=== PATIENT | female | born 1990 | race Caucasian/White ===

== ENCOUNTER 2018-12-10 16:24 | Emergency (ER) | payer OTHER ==
--- OUTSIDE RECORDS SUMMARY | 2018-12-10 16:27 | XMS REPORT | Clinical Summary ---
:1990 Author Organization [facility] Address [address] [place] [id number] Care Team Providers Name Role Phone Jono López Primary Care Provider Allergies Active Allergy Reactions Severity Noted Date Comments Nyquil Other (See Comments) High 03/19/2014 hallucination Medications Medication Sig Dispensed Refills Start Date End Date Status lithium 150 MG Take 300 mg by 0 Active capsuleIndications: mouth 3 (three) Bipolar Disorder times daily with meals. QUEtiapine (SEROQUEL) Take 400 mg by 0 Active 400 MG tablet mouth nightly. propranolol (INDERAL) Take 20 mg by 0 Active 20 MG tablet mouth 3 (three) times daily. chlorpheniramine-hydroc Take 5 mLs (8 mg 75 mL 0 03/19/2014 Active odone (TUSSIONEX ER) total) by mouth 2 8-10 mg/5 mL Su12 ER (two) times daily 12hr oral suspension as needed. Active Problems Not on file Social History Tobacco Use Types Packs/Day Years Used Date Never Smoker Smokeless Tobacco: Never Used Alcohol Use Drinks/Week oz/Week Comments No Sex Assigned at Date Recorded Not on file Job Start Date Occupation Industry Not on file Not on file Not on file Travel History Travel Start Travel End No recent travel history available. Last Filed Vital Signs Not on file Plan of Treatment Not on file Results Not on fileafter 12/09/2017 Insurance Payer Benefit Plan / Group Subscriber ID Type Phone Address [employer] - [employer] CARE CIGNA HMO/POS/OPEN ACCESS xxxxxxxxxxx HMO/POS [facility] Bibiana Baker (Home) [place] [phone]
[2018-12-10] MEDS ORDERED: ONDANSETRON 4 MG/2 ML VIAL ONE (17:16)
[2018-12-10] MEDS ORDERED: MORPHINE 4 MG/ML SYR ONE (17:16)
[2018-12-10 17:22] LABS: Absolute Lymphocytes (CBC) 2.7 K/uL (0.7-4.9); Absolute Monocytes 0.5 K/uL (0.1-1.3); Basophils % 0.7 % (0-1.3); Eosinophils % 1.2 % (0-4.4); Hematocrit 41.3 % (36.0-45.0); MPV 8.5 fL (7.6-11.3); Monocytes % 7.2 % (3.3-12.3); RBC Red Blood Cell Count 4.67 M/uL (3.86-4.86)
--- NOTE | 2018-12-10 17:34 | RAD REPORT ---
EXAM DESCRIPTION: RAD - Chest Single View - 12/10/2018 5:21 pm CLINICAL HISTORY: CHEST PAIN Chest pain. COMPARISON: CHEST PA AND LAT 2 VIEW dated 04/05/2007 FINDINGS: Portable technique limits examination quality. The lungs are grossly clear. The heart is normal in size. No displaced fractures. IMPRESSION: No acute intrathoracic process suspected.
[2018-12-10 17:42] LABS: ALT/SGPT 29 U/L (12-78); AST/SGOT 15 U/L (15-37); Alkaline Phosphatase 72 U/L (45-117); BUN Blood Urea Nitrogen 9 mg/dL (7-18); Bicarbonate 28 mmol/L (21-32); Bilirubin Direct < 0.1 mg/dL (0-0.2); Bilirubin Total 0.3 mg/dL (0.2-1.0); Glucose Level 86 mg/dL (74-106); Lipase 69 U/L (73-393); Magnesium 1.8 mg/dL (1.8-2.4); NT PRO-BNP 33 pg/mL (<125); Potassium 4.3 mmol/L (3.5-5.1); Protein, Total 7.8 g/dL (6.4-8.2); Sodium Level 140 mmol/L (136-145); Troponin (Emerg Dept Use Only) < 0.02 ng/mL (0.0-0.045)
[2018-12-10 19:04] LABS: Urine Blood NEGATIVE (NEG); Urine Glucose NEGATIVE (NEG); Urine Protein NEGATIVE (NEG); Urine Specific Gravity 1.015 (1.005-1.030); Urine pH 5.5 (5.0-7.0)
[2018-12-10] MEDS ORDERED: DIAZEPAM 10 MG/2 ML INJ SYRINGE ONE (19:29)
--- NOTE | 2018-12-10 20:02 | RAD REPORT ---
EXAM DESCRIPTION: CT - Chest For Pe Angio - 12/10/2018 7:51 pm CLINICAL HISTORY: Chest pain. chest pain, shortness of breath COMPARISON: No comparisons TECHNIQUE: CT angiogram of the pulmonary arteries was performed with MIP. All CT scans are performed using dose optimization technique as appropriate and may include automated exposure control or mA/KV adjustment according to patient size. FINDINGS: No evidence of pulmonary thromboembolism. No acute aortic finding demonstrated. The lungs are clear. No significant pericardial or pleural fluid. No concerning bony finding. IMPRESSION: No evidence of pulmonary thromboembolism. No acute lung findings.
--- NOTE | 2018-12-10 20:03 | RAD REPORT ---
EXAM DESCRIPTION: CTAbdomen Pelvis W Contrast - 12/10/2018 7:51 pm CLINICAL HISTORY: Abdominal pain. right lower abdominal pain, IV ONLY COMPARISON: Chest For Pe Angio dated 12/10/2018 TECHNIQUE: Biphasic CT imaging of the abdomen and pelvis was performed with 100 ml non-ionic IV cont rast. All CT scans are performed using dose optimization technique as appropriate and may include automated exposure control or mA/KV adjustment according to patient size. FINDINGS: The lung bases are clear. The liver, spleen, pancreas, adrenal glands and kidneys are within normal limits. No bowel obstruction, free air, free fluid or abscess. The appendix is normal. No evidence of signi ficant lymphadenopathy. No suspicious bony findings. IMPRESSION: No acute intra-abdominal or pelvic finding.
[2018-12-10] MEDS ORDERED: KETOROLAC 30 MG/ML INJ ONE (20:08)
--- NOTE | 2018-12-10 20:26 | ER ---
Nurse's Notes [facility] Name: Bibiana Verdugo Age: 28 yrs Sex: Female : 1990 Arrival Date: 12/10/2018 Time: 16:27 Bed 24 Private MD: Diagnosis: Chest pain, unspecified;Abdominal and pelvic pain Presentation: 12/10 16:27 Presenting complaint: Patient states: i am having a lot of chest pain, it started a tw2 week and a half ago, but it has gotten worse, she went to the ER in a week ago they did ekg and it was fine, i am nauseous. Transition of care: patient was not received from another setting of care. Onset of symptoms was December 10, 2018. Risk Assessment: Do you want to hurt yourself or someone else? Patient reports no desire to harm self or others. Initial Sepsis Screen: Does the patient meet any 2 criteria? No. Patient's initial sepsis screen is negative. Does the patient have a suspected source of infection? No. Patient's initial sepsis screen is negative. Care prior to arrival: None. 16:27 Method Of Arrival: Ambulatory tw2 16:27 Acuity: JANNA 3 tw2 Triage Assessment: 16:32 General: Appears obese, Behavior is anxious. Pain: Complains of pain in chest. tw2 Cardiovascular: Reports chest pain. 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 - Social history:: Smoking status: . - Ebola Screening: : Patient denies travel to an Ebola-affected area in the 21 days before illness onset. Screenin:29 Abuse screen: Denies threats or abuse. Denies injuries from another. Nutritional rv screening: No deficits noted. Tuberculosis screening: No symptoms or risk factors identified. Fall Risk None identified. Assessment: 17:28 General: Appears in no apparent distress. comfortable, Behavior is calm, cooperative. rv Pain: Complains of pain in chest Pain does not radiate. Pain began suddenly. Neuro: Level of Consciousness is awake, alert, obeys commands, Oriented to person, place, time, situation. Cardiovascular: Capillary refill < 3 seconds Rhythm is regular. Respiratory: Airway is patent. GI: No signs and/or symptoms were reported involving the gastrointestinal system. : No signs and/or symptoms were reported regarding the genitourinary system. EENT: No signs and/or symptoms were reported regarding the EENT system. Derm: Skin is intact. Vital Signs: 16:29 BP 129 / 91; Pulse 79; Resp 18; Temp 98.0(O); Pulse Ox 98% on R/A; Weight 113.4 kg (R); tw2 Height 5 ft. 7 in. (170.18 cm); Pain 10/10; 16:45 BP 100 / 72 LA; Pulse 80; Resp 19 S; Pulse Ox 100% on R/A; rv 16:29 Body Mass Index 39.16 (113.40 kg, 170.18 cm) tw2 ED Course: 16:27 Patient arrived in ED. mr 16:29 Triage completed. tw2 16:32 Arm band placed on. tw2 16:46 [facility] 16:46 Felix Ross MD is Attending Physician. m 17:05 EKG done, by loom technician. reviewed by Jamey [place]. sm3 17:11 Inserted saline lock: in right antecubital area, using aseptic technique. tm3 17:12 Initial lab(s) drawn, by ne, sent to lab. tm3 17:20 X-ray completed. Portable x-ray completed in exam room. Patient tolerated procedure ml well. 17:21 XRAY Chest (1 view) In Process Unspecified. EDMS 17:28 Patient has correct armband on for positive identification. Placed in gown. Bed in low rv position. Call light in reach. Side rails up X2. Adult w/ patient. monitor car operator on. Pulse ox on. NIBP on. 17:29 Patient maintains SpO2 saturation greater than 95% on room air. rv 19:[address] via wheelchair. vm2 19:47 CT completed. Patient tolerated procedure well. Patient moved back from CT. vm2 19:51 CT Chest For PE Angio In Process Unspecified. EDMS 19:51 CT Abd/Pelvis - W/Contrast In Process Unspecified. EDMS 20:31 US Abdomen Limited In Process Unspecified. EDMS 20:38 No provider procedures requiring assistance completed. IV discontinued, bleeding rv controlled, No redness/swelling at site. Pressure dressing applied. Administered Medications: 17:25 Not Given (Patient Refused): Zofran 4 mg IVP once; over 2 minutes rv 17:26 Drug: morphine 4 mg Route: IVP; Site: right antecubital; rv 19:44 Follow up: Response: Pain is decreased rv 19:32 Drug: Valium 2 mg Route: IVP; Site: right antecubital; rv 20:39 Follow up: Response: Marked relief of symptoms rv 20:00 Drug: Ketorolac 30 mg Route: IVP; Site: right antecubital; rv 20:39 Follow up: Response: Pain is decreased rv Outcome: 20:26 Discharge ordered by MD. jmm 20:38 Discharged to home ambulatory. rv 20:38 Condition: good 20:38 Discharge instructions given to patient, Instructed on discharge instructions, follow up and referral plans. medication usage, Demonstrated understanding of instructions, follow-up care, medications, Prescriptions given X 2. 20:40 Patient left the ED. rv Signatures: Dispatcher [employer] EDMS Stuart Jacobsen 3 Jamey Bailey PA PA jmm Rivera, Mary mr Blake, Laisha Ramey, RN RN tw2 Rebeca Espinoza 2 Lori Mixon 3 Ambrocio Ford, RN RN rv
--- NOTE | 2018-12-10 20:26 | EDPHYS ---
Physician Documentation [facility] Name: Bibiana Verdugo Age: 28 yrs Sex: Female : 1990 Arrival Date: 12/10/2018 Time: 16:27 Bed 24 Private MD: ED Physician Felix Ross HPI: 12/10 16:58 This 28 yrs old Female presents to ER via Ambulatory with complaints of Chest jmm Pain. 16:58 The patient or guardian reports chest pain that is located primarily in the substernal jmm area. The pain does not radiate. Associated signs and symptoms: Pertinent positives: shortness of breath. The chest pain is described as sharp, squeezing. This is a 28 year old female with a history of htn, bipolar, anxiety, migraines that presents to the ED with complaints of 10 days of left sided chest pain beginning approx 10 days ago. Patient was initially evaluated at another ED with negative studies. Patient states the pain has intensified over the past 2 days. . 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 - Social history:: Smoking status: . - Ebola Screening: : Patient denies travel to an Ebola-affected area in the 21 days before illness onset. ROS: 16:58 Constitutional: Negative for fever, chills, and weight loss. jmm 16:58 Cardiovascular: Positive for chest pain. 16:58 Abdomen/GI: Positive for abdominal pain. 16:58 All other systems are negative. Exam: 16:58 Head/Face: atraumatic. Eyes: EOMI, no conjunctival erythema appreciated ENT: Moist jmm Mucus Membranes Neck: Trachea midline, Supple Chest/axilla: Normal chest wall appearance and motion. Cardiovascular: Regular rate and rhythm. No edema appreciated Respiratory: Normal respirations, no respiratory distress appreciated 16:58 Constitutional: The patient appears alert, awake, anxious, uncomfortable. 16:58 Abdomen/GI: Inspection: obese Bowel sounds: normal, Palpation: soft, mild abdominal tenderness, in the right upper quadrant and right lower quadrant. 16:58 Back: ROM is normal. 16:58 Musculoskeletal/extremity: ROM: intact in all extremities. 16:58 Skin: Appearance: Color: normal in color. 16:58 Neuro: Orientation: is normal, Mentation: is normal, Memory: is normal. 16:58 Psych: Behavior/mood is pleasant, cooperative, anxious. Vital Signs: 16:29 BP 129 / 91; Pulse 79; Resp 18; Temp 98.0(O); Pulse Ox 98% on R/A; Weight 113.4 kg (R); tw2 Height 5 ft. 7 in. (170.18 cm); Pain 10/10; 16:45 BP 100 / 72 LA; Pulse 80; Resp 19 S; Pulse Ox 100% on R/A; rv 16:29 Body Mass Index 39.16 (113.40 kg, 170.18 cm) tw2 MDM: 16:56 Patient medically screened. [facility] 20:22 Data reviewed: vital signs, nurses notes. Counseling: I had a detailed discussion with [facility] the patient and/or guardian regarding: the historical points, exam findings, and any diagnostic results supporting the discharge/admit diagnosis, radiology results, the need for outpatient follow up, to return to the emergency department if symptoms worsen or persist or if there are any questions or concerns that arise at home. 20:37 ED course: Repeat enzymes negative, CTA negative. Ct abd/pelvis normal. Patient will [facility] follow up with cardiology tomorrow for reevaluaiton. I do not currently suspect ACS. Patient was otherwise given strict return precautions. Patient understood agrees with the plan of care . 12/10 16:57 Order name: Basic Metabolic Panel; Complete Time: 17:47 [facility] 12/10 16:57 Order name: CBC with Diff; Complete Time: 17:47 [facility] 12/10 16:57 Order name: LFT's; Complete Time: 17:47 [facility] 12/10 16:57 Order name: Magnesium; Complete Time: 17:47 [facility] 12/10 16:57 Order name: NT PRO-BNP; Complete Time: 17:47 [facility] 12/10 16:57 Order name: PT-INR; Complete Time: 17:47 [facility] 12/10 16:57 Order name: Troponin (emerg Dept Use Only); Complete Time: 17:47 [facility] 12/10 16:57 Order name: XRAY Chest (1 view); Complete Time: 17:47 [facility] 12/10 16:57 Order name: D-Dimer; Complete Time: 17:47 [facility] 12/10 16:57 Order name: Lipase; Complete Time: 17:47 [facility] 12/10 17:24 Order name: Urine Dipstick--Ancillary (enter results); Complete Time: 19:05 12/10 17:24 Order name: Urine --Ancillary (enter results); Complete Time: 19:05 bd 12/10 19:17 Order name: Troponin (emerg Dept Use Only); Complete Time: 19:58 [facility] 12/10 19:23 Order name: US Abdomen Limited; Complete Time: 20:37 [facility] 12/10 16:57 Order name: EKG; Complete Time: 16:57 [facility] 12/10 16:57 Order name: Cardiac monitoring; Complete Time: 17:26 [facility] 12/10 16:57 Order name: EKG - Nurse/Tech; Complete Time: 17:26 [facility] 12/10 16:57 Order name: IV Saline Lock; Complete Time: 17:26 [facility] 12/10 16:57 Order name: Labs collected and sent; Complete Time: 17:26 [facility] 12/10 16:57 Order name: O2 Per Protocol; Complete Time: 17:26 [facility] 12/10 16:57 Order name: O2 Sat Monitoring; Complete Time: 17:26 [facility] 12/10 19:17 Order name: EKG - Nurse/Tech; Complete Time: 19:45 [facility] 12/10 19:28 Order name: CT Chest For PE Angio; Complete Time: 20:09 [facility] 12/10 19:28 Order name: CT Abd/Pelvis - W/Contrast; Complete Time: 20:09 [facility] Administered Medications: 17:25 Not Given (Patient Refused): Zofran 4 mg IVP once; over 2 minutes rv 17:26 Drug: morphine 4 mg Route: IVP; Site: right antecubital; rv 19:44 Follow up: Response: Pain is decreased rv 19:32 Drug: Valium 2 mg Route: IVP; Site: right antecubital; rv 20:39 Follow up: Response: Marked relief of symptoms rv 20:00 Drug: Ketorolac 30 mg Route: IVP; Site: right antecubital; rv 20:39 Follow up: Response: Pain is decreased rv Disposition: 12/10/18 20:26 Discharged to Home. Impression: Chest pain, unspecified, Abdominal and pelvic pain. - Condition is Stable. - Discharge Instructions: Abdominal Pain, Adult, Nonspecific Chest Pain. - Prescriptions for Tylenol- Codeine #3 300-30 mg Oral Tablet - take 1 tablet by ORAL route every 6 hours As needed; 12 tablet. Ibuprofen 800 mg Oral Tablet - take 1 tablet by ORAL route every 8 hours As needed take with food; 30 tablet. - Medication Reconciliation Form, Thank You Letter, Antibiotic Education, Prescription Opioid Use form. - Follow up: Private Physician; When: 2 - 3 days; Reason: Recheck today's complaints, Continuance of care, Re-evaluation by your physician. Signatures: Dispatcher [employer] EDMS Jamey Bailey PA PA jmm Wise, Tara RN RN tw2 Ambrocio Ford RN RN rv Corrections: (The following items were deleted from the chart) 20:40 20:26 12/10/2018 20:26 Discharged to Home. Impression: Chest pain, unspecified; rv Abdominal and pelvic pain. Condition is Stable. Forms are Medication Reconciliation Form, Thank You Letter, Antibiotic Education, Prescription Opioid Use. Follow up: Private Physician; When: 2 - 3 days; Reason: Recheck today's complaints, Continuance of care, Re-evaluation by your physician. katty
--- NOTE | 2018-12-10 20:35 | RAD REPORT ---
EXAM DESCRIPTION: US - Abdomen Exam Limited - 12/10/2018 8:30 pm CLINICAL HISTORY: abdominal pain, chest pain COMPARISON: <Comparisons> FINDINGS: The gallbladder demonstrates no gallstones. No pericholecystic fluid or gallbladder wall t hickening. The common bile duct is normal measuring 3 mm. The liver demonstrates no findings of intrahepatic biliary dilatation. IMPRESSION: Unremarkable examination.
== END 2018-12-10 20:40 | disposition home or self-care (01) ==
LOC: ER 16:24
DX: R10.2 Pelvic and perineal pain (principal); I10 Essential (primary) hypertension; F31.9 Bipolar disorder, unspecified
CPT/HCPCS: 36415; 71045; 71275; 74177; 76705; 80048; 80076; 81003; 81025; 83690; 83735; 83880; 84484; 85025; 85379; 85610; 93005; 96374; 96375; 99285; J2405; J3360; Q9967

== ENCOUNTER 2019-02-08 22:05 | Emergency (ER) | payer OTHER ==
--- OUTSIDE RECORDS SUMMARY | 2019-02-08 22:06 | XMS REPORT | Clinical Summary ---
:1990 Author Organization [facility] Address [address] [place] [id number] Care Team Providers Name Role Phone Jono [...] Not on file Results Not on fileafter 02/07/2018 Insurance Payer Benefit Plan / Group Subscriber ID Type Phone Address [employer] - [employer] CARE CIGNA HMO/POS/OPEN ACCESS xxxxxxxxxxx HMO/POS [facility] Bibiana Baker (Home) [place] [id number]
[2019-02-08] MEDS ORDERED: IBUPROFEN 200 MG TAB PO ONE (22:39)
--- NOTE | 2019-02-08 23:18 | ER ---
Nurse's Notes [facility] Name: Bibiana Verdugo Age: 28 yrs Sex: Female : 1990 Arrival Date: 02/08/2019 Time: 22:06 Bed 15 Private MD: Diagnosis: Displaced fracture of proximal phalanx of right lesser toe(s) Presentation: 02/08 22:19 Presenting complaint: Patient states: she injured her right foot approx an hour ago bb while trying to kick off her flip flop by kicking the door frame, last two toes and lateral aspect of right foot are painful. Transition of care: patient was not received from another setting of care. Onset of symptoms was February 08, 2019. Risk Assessment: Do you want to hurt yourself or someone else? Patient reports no desire to harm self or others. Initial Sepsis Screen: Does the patient meet any 2 criteria? No. Patient's initial sepsis screen is negative. Does the patient have a suspected source of infection? No. Patient's initial sepsis screen is negative. Care prior to arrival: None. 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 - Social history:: Smoking status: Patient/guardian denies using tobacco. - Ebola Screening: : No symptoms or risks identified at this time. Screenin:32 Abuse screen: Denies threats or abuse. Nutritional screening: No deficits noted. jb4 Tuberculosis screening: No symptoms or risk factors identified. Fall Risk None identified. Assessment: 22:32 General: Appears in no apparent distress. uncomfortable, Behavior is calm, cooperative, jb4 appropriate for age. Pain: Complains of pain in right foot Pain does not radiate. Pain currently is 8 out of 10 on a pain scale. Quality of pain is described as pulsating. Neuro: Level of Consciousness is awake, alert, obeys commands, Oriented to person, place, time, situation. Cardiovascular: Patient's skin is warm and dry. Respiratory: Airway is patent Respiratory effort is even, unlabored, Respiratory pattern is regular, symmetrical. GI: No signs and/or symptoms were reported involving the gastrointestinal system. : No signs and/or symptoms were reported regarding the genitourinary system. EENT: No signs and/or symptoms were reported regarding the EENT system. Derm: Skin is intact, Skin is pink, warm \T\ dry. Musculoskeletal: Circulation, motion, and sensation intact. 02/09 00:00 Reassessment: Patient appears in no apparent distress at this time. Patient and/or jb4 family updated on plan of care and expected duration. Pain level reassessed. Patient is alert, oriented x 3, equal unlabored respirations, skin warm/dry/pink. Patient denies pain at this time. Vital Signs: 02/08 22:22 BP 111 / 79; Pulse 100; Resp 16 S; Temp 98.8(O); Pulse Ox 100% on R/A; Weight 108.86 kg bb (R); Height 5 ft. 7 in. (170.18 cm) (R); Pain 8/10; 02/09 00:00 BP 100 / 64; Pulse 82; Resp 20; Pulse Ox 99% on R/A; jb4 02/08 22:22 Body Mass Index 37.59 (108.86 kg, 170.18 cm) ED Course: 02/08 22:06 Patient arrived in ED. as 22:10 Felix Ross MD is Attending Physician. 22:21 Randy Escobar, MARIO is Primary Nurse. [facility] 22:21 Triage completed. 22:22 Arm band placed on Patient placed in an exam room, on a stretcher, on pulse oximetry. Family accompanied patient. 22:32 Patient has correct armband on for positive identification. Bed in low position. Call jb4 light in reach. Side rails up X 1. Pulse ox on. NIBP on. 22:41 Foot Right 3 View XRAY In Process Unspecified. EDMS 23:16 Bubba Sanchez MD is Referral Physician. 02/09 00:00 No provider procedures requiring assistance completed. Patient did not have IV access jb4 during this emergency room visit. 00:00 Crutch training done. jb4 Administered Medications: 02/08 22:29 Drug: Ibuprofen 600 mg Route: PO; jb4 22:59 Follow up: Response: No adverse reaction; Pain is decreased jb4 23:48 Drug: [place] 10 mg-325 mg 1 tabs Route: PO; jb4 02/09 00:09 Follow up: Response: No adverse reaction; Medication administered at discharge. jb4 Outcome: 02/08 23:17 Discharge ordered by . ro 02/09 00:00 Discharged to home via wheelchair. jb4 Condition: stable Discharge instructions given to patient, family, Instructed on discharge instructions, follow up and referral plans. crutch walking, Demonstrated understanding of instructions, follow-up care, crutch walking, Prescriptions given X 1. 00:11 Patient left the ED. jb4 Signatures: Dispatcher [employer] EDLucinda Kent Brenda, RN RN bb Bryson, James, RN RN jb4 Felix Ross MD MD gs
--- NOTE | 2019-02-08 23:18 | EDPHYS ---
Physician Documentation [facility] Name: Bibiana Verdugo Age: 28 yrs Sex: Female : 1990 Arrival Date: 02/08/2019 Time: 22:06 Bed 15 Private MD: ED Physician Felix Ross HPI: 02/08 23:12 This 28 yrs old Female presents to ER via Wheelchair with complaints of Foot gs Injury. 23:12 The patient presents with an injury. The complaints affect the right foot. Context: gs resulted from the patient kicking, a door. Onset: The symptoms/episode began/occurred acutely, just prior to arrival. Modifying factors: The symptoms are alleviated by nothing, the symptoms are aggravated by weight bearing, movement. Associated signs and symptoms: Pertinent negatives: numbness. Severity of symptoms: At their worst the symptoms were severe, in the emergency department the symptoms are unchanged. The patient has not experienced similar symptoms in the past. 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 - Social history:: Smoking status: Patient/guardian denies using tobacco. - Ebola Screening: : No symptoms or risks identified at this time. ROS: 23:12 All other systems are negative. gs Exam: 23:12 Head/Face: Normocephalic, atraumatic. Neck: Trachea midline, no thyromegaly or masses gs palpated, and no cervical lymphadenopathy. Supple, full range of motion without nuchal rigidity, or vertebral point tenderness. No Meningismus. Abdomen/GI: Soft, non-tender, with normal bowel sounds. No distension or tympany. No guarding or rebound. No evidence of tenderness throughout. Back: No spinal tenderness. No costovertebral tenderness. Full range of motion. Skin: Warm, dry with normal turgor. Normal color with no rashes, no lesions, and no evidence of cellulitis. Neuro: Awake and alert, GCS 15, oriented to person, place, time, and situation. Cranial nerves II-XII grossly intact. Motor strength 5/5 in all extremities. Sensory grossly intact. Cerebellar exam normal. Normal gait. 23:12 Constitutional: The patient appears alert, awake, uncomfortable. 23:12 Musculoskeletal/extremity: ROM: limited active range of motion due to pain, limited passive range of motion due to pain, Pulses: are normal with no appreciated deficits, Perfusion: the patient is normally perfused throughout, Sensation intact. Severe pain noted. Vital Signs: 22:22 BP 111 / 79; Pulse 100; Resp 16 S; Temp 98.8(O); Pulse Ox 100% on R/A; Weight 108.86 kg bb (R); Height 5 ft. 7 in. (170.18 cm) (R); Pain 8/10; 02/09 00:00 BP 100 / 64; Pulse 82; Resp 20; Pulse Ox 99% on R/A; jb4 02/08 22:22 Body Mass Index 37.59 (108.86 kg, 170.18 cm) MDM: 02/08 22:16 Patient medically screened. 23:12 Differential diagnosis: fracture, sprain. Data reviewed: vital signs, nurses notes, gs radiologic studies. Counseling: I had a detailed discussion with the patient and/or guardian regarding: the historical points, exam findings, and any diagnostic results supporting the discharge/admit diagnosis, radiology results, the need for outpatient follow up, a orthopedic surgeon. Response to treatment: the patient's symptoms have mildly improved after treatment. 02/08 22:19 Order name: Foot Right 3 View XRAY 02/09 00:08 Order name: Crutches; Complete Time: 00:09 lt1 Administered Medications: 22:29 Drug: Ibuprofen 600 mg Route: PO; [facility] 22:59 Follow up: Response: No adverse reaction; Pain is decreased [facility] 23:48 Drug: [place] 10 mg-325 mg 1 tabs Route: PO; [facility] 02/09 00:09 Follow up: Response: No adverse reaction; Medication administered at discharge. 4 Disposition: 02/08/19 23:17 Discharged to Home. Impression: Displaced fracture of proximal phalanx of right lesser toe(s). - Condition is Stable. - Discharge Instructions: Toe Fracture. - Prescriptions for Tylenol- Codeine #4 300-60 mg Oral Tablet - take 1 tablet by ORAL route every 6 hours As needed; 10 tablet. - Medication Reconciliation Form, Thank You Letter, Antibiotic Education, Prescription Opioid Use form. - Follow up: Bubba Sanchez MD; When: 5 - 6 days; Reason: Re-evaluation by your physician. Signatures: Dispatcher [employer] EDMary Jo Rutherford RN RN Randy Dave RN RN jb4 Felix Ross MD MD Guillen, [facility] Corrections: (The following items were deleted from the chart) 00:11 02/08 23:17 02/08/2019 23:17 Discharged to Home. Impression: Displaced fracture of jb4 proximal phalanx of right lesser toe(s). Condition is Stable. Forms are Medication Reconciliation Form, Thank You Letter, Antibiotic Education, Prescription Opioid Use. Follow up: Dr. Bubba Sanchez; When: 5 - 6 days; Reason: Re-evaluation by your physician. gs
[2019-02-09] MEDS ORDERED: HYDROCODONE/APAP 10/325 TAB ONE (00:08)
--- NOTE | 2019-02-09 12:18 | RAD REPORT ---
EXAM DESCRIPTION: RAD - Foot Right 3 View - 02/08/2019 10:41 pm CLINICAL HISTORY: Right foot pain status post injury FINDINGS: Moderately displaced oblique fracture fifth proximal phalanx with angulation present at th e fracture site. No dislocation
== END 2019-02-09 00:11 | disposition home or self-care (01) ==
LOC: ER 22:05
DX: S92.511A Displaced fracture of proximal phalanx of right lesser toe(s), initial encounter for closed fracture (principal); W22.8XXA Striking against or struck by other objects, initial encounter; I10 Essential (primary) hypertension; F41.9 Anxiety disorder, unspecified; F31.9 Bipolar disorder, unspecified
CPT/HCPCS: 99284